=== PATIENT | female | born 2005 | race Hispanic/Latino ===

== ENCOUNTER 2024-07-30 17:29 | Emergency (ER) | payer BC ==
[~2024-07-30] VITALS: Ht 157.5 cm; Wt 49.9 kg
[2024-07-30 19:56] VITALS: PULSE 67; RESP 16; TEMP 98.7; O2SAT 100
== END 2024-07-30 19:57 | disposition home or self-care (01) ==
LOC: ER 19:00
DX: M54.6 Pain in thoracic spine (principal); S29.012A Strain of muscle and tendon of back wall of thorax, initial encounter; F17.290 Nicotine dependence, other tobacco product, uncomplicated
CPT/HCPCS: 71046; 93005; 99283